=== PATIENT | female | born 1955 | race Caucasian/White ===

== ENCOUNTER 2025-07-27 23:22 | Inpatient (IN) | payer OTHER ==
[2025-07-28] MEDS ORDERED: ONDANSETRON 4 MG/2 ML VIAL ONE ×2 (00:10→00:13)
[2025-07-28] MEDS ORDERED: MORPHINE 4 MG/ML SYR ONE (00:11)
[2025-07-28] MEDS ORDERED: NA CHLORIDE 0.9% 1,000 ML ONE (00:11)
[2025-07-28] MEDS ORDERED: FAMOTIDINE 20 MG/2 ML VIAL IV ONE (00:13)
[2025-07-28] MEDS ORDERED: HYDROMORPHONE HCL 1 MG/ML INJ ONE (00:36)
[2025-07-28 00:41] LABS: Absolute Lymphocytes (CBC) 1.3 K/uL (0.7-4.9); Hematocrit 40.7 % (36.0-45.0); Hemoglobin 13.9 g/dL (12.0-15.0); MCH 28.4 pg (27.0-35.0); MCHC 34.1 g/dL (32.0-36.0); MCV 83.4 fL (80-100); MPV 10.2 fL (7.6-11.3); Nucleated RBC Absolute Count 0.0 (0-0); Nucleated Red Blood Cells % 0.0 % (0-0); RBC Red Blood Cell Count 4.89 M/uL (3.86-4.86); White Blood Count 17.60 thou/uL (4.3-10.9)
[2025-07-28 00:43] LABS: Urine Microscopic Reflex YN NO UMIC
[2025-07-28] MEDS ORDERED: NA CHLORIDE 0.9% 100 ML ONE (01:12)
[2025-07-28] MEDS ORDERED: PIPERACIL/TAZO 3.375 GM VIAL IV ONE (01:13)
[2025-07-28 01:14] LABS: ALT/SGPT 28.0 U/L (13-56); AST/SGOT 19.0 U/L (15-37); Albumin 4.6 g/dL (3.4-5.0); Albumin/Globulin Ratio 1.3 (1.1-1.8); Alkaline Phosphatase 94.0 U/L (45-117); Anion Gap 11.4 mEq/L (5.0-15.0); BUN Blood Urea Nitrogen 13.0 mg/dL (7-18); Bilirubin Indirect, Calculated 0.5 mg/dL (0.2-0.8); Globulin 3.6 g/dL (2.3-3.5); Glucose Level 181.0 mg/dL (74-106); Lipase 33.0 U/L (13-75); Magnesium 1.7 mg/dL (1.6-2.4); NT PRO-BNP 113.0 pg/mL (<125); Potassium 3.4 mEq/L (3.5-5.1); Troponin High Sensitivity 9.5 pg/mL (<58.9)
[2025-07-28 01:34] LABS: PT Prothrombin Time 12.5 SECONDS (10-13.0); Protime INR 1.11
[2025-07-28 01:43] LABS: Blood Morphology Comment NOT SEEN (NOT SEEN); Differential Total Cells Count 100; Segmented Neutrophils 81 % (40-80)
--- NOTE | 2025-07-28 03:16 | RAD REPORT ---
EXAM: CT Abdomen and Pelvis With Intravenous Contrast CLINICAL HISTORY: The patient is 69 years old and is Female; ABD PAIN TECHNIQUE: Axial computed tomography images of the abdomen and pelvis with intravenous contrast. Sagittal and coronal reformatted images were created and reviewed. This CT exam was performed using one or more of the following dose reduction techniques: automated exposure control, adjustmen t of the mA and/or kV according to patient size, and/or use of iterative reconstruction technique. COMPARISON: No relevant prior studies available. FINDINGS: Lung bases: Unremarkable. No mass. No consolidation. ABDOMEN: Liver: Mild intra and extrahepatic biliary dilatation. Gallbladder and bile ducts: Gallbladder is surgically absent. Pancreas: Unremarkable. No mass. No ductal dilation. Spleen: Unremarkable. No splenomegaly. Adrenals: Mild nonspecific stranding around the adrenal glands bilaterally. Kidneys and ureters: Mild bilateral hydroureter. Stomach and bowel: Scattered colonic diverticula. No obstruction. No mucosal thickening. PELVIS: Appendix: No findings to suggest acute appendicitis. Bladder: Unremarkable. Reproductive: Uterus is not seen. ABDOMEN and PELVIS: Intraperitoneal space: Unremarkable. No free air. No significant fluid collection. Bones/joints: No acute fracture. No dislocation. Soft tissues: Unremarkable. Vasculature: Scattered atherosclerotic vascular calcifications. No abdominal aortic aneurysm. Lymph nodes: Unremarkable. No enlarged lymph nodes. IMPRESSION: 1. Gallbladder is surgically absent. 2. Mild intra and extrahepatic biliary dilatation. 3. Mild nonspecific stranding around the adrenal glands bilaterally. 4. Mild bilateral hydroureter. 5. Uterus is not seen. Electronically signed by: Peter Fowler MD 07/28/2025 03:10 AM CDT 8 Due to temporary technical issues with the PACS/[employer]Portico reporting system, reports are being hang d by the in-house radiologist without review as a courtesy to ensure prompt reporting the interpreting radiologist is fully responsible for the content of the report. Transcribed Date/Time: 07/28/2025 3:15 AM
--- NOTE | 2025-07-28 03:57 | EDPHYS ---
Physician Documentation [facility] Name: Kellen Oglesby Age: 69 yrs Sex: Female : 1955 Arrival Date: 07/27/2025 Time: 23:22 Bed 6 Private MD: ED Physician Tad Soto HPI: 07/28 00:24 This 69 yrs old Female presents to ER via EMS with complaints of Abd Pain > jessika 48 y/o. 00:24 The patient presents with abdominal pain in the upper abdomen, in the lower abdomen, jessika abdominal distention in the upper abdomen, in the lower abdomen. Onset: The symptoms/episode began/occurred 1 day(s) ago. The symptoms do not radiate. Associated signs and symptoms: none. Modifying factors: The symptoms are alleviated by nothing, the symptoms are aggravated by movement, pressure. Severity of pain: At its worst the pain was moderate in the emergency department the pain is unchanged. The patient has not experienced similar symptoms in the past. Historical: - Allergies: 00:07 No Known Allergies; bm8 - Home Meds: 00:07 Unable to obtain [Active]; bm8 - PMHx: 00:07 Hypertensive disorder; Hypercholesterolemia; bm8 - PSHx: 00:07 Unable to Obtain; bm8 - Immunization history:: Adult Immunizations up to date. - Infectious Disease History:: Denies. - Social history:: Smoking status: Patient denies any tobacco usage or history of. Patient/guardian denies using alcohol, street drugs. - Family history:: not pertinent. ROS: 00:24 Constitutional: Negative for fever, chills, and weight loss, Eyes: Negative for injury, jessika pain, redness, and discharge, ENT: Negative for injury, pain, and discharge, Neck: Negative for injury, pain, and swelling, Cardiovascular: Negative for chest pain, palpitations, and edema, Respiratory: Negative for shortness of breath, cough, wheezing, and pleuritic chest pain, Back: Negative for injury and pain, : Negative for injury, bleeding, discharge, and swelling, MS/Extremity: Negative for injury and deformity, Skin: Negative for injury, rash, and discoloration, Neuro: Negative for headache, weakness, numbness, tingling, and seizure, Psych: Negative for depression, anxiety, suicide ideation, homicidal ideation, and hallucinations, Allergy/Immunology: Negative for hives, rash, and allergies, Endocrine: Negative for neck swelling, polydipsia, polyuria, polyphagia, and marked weight changes, Hematologic/Lymphatic: Negative for swollen nodes, abnormal bleeding, and unusual bruising, 00:24 Abdomen/GI: Positive for abdominal pain, nausea and vomiting, abdominal cramps, abdominal distension, 00:24 MS/extremity: Negative for acute changes, Exam: 00:24 Constitutional: This is a well developed, well nourished patient who is awake, alert, jessika and in no acute distress. Head/Face: Normocephalic, atraumatic. Eyes: Pupils equal round and reactive to light, extra-ocular motions intact. Lids and lashes normal. Conjunctiva and sclera are non-icteric and not injected. Cornea within normal limits. Periorbital areas with no swelling, redness, or edema. ENT: Nares patent. No nasal discharge, no septal abnormalities noted. Tympanic membranes are normal and external auditory canals are clear. Oropharynx with no redness, swelling, or masses, exudates, or evidence of obstruction, uvula midline. Mucous membranes moist. Neck: Trachea midline, no thyromegaly or masses palpated, and no cervical lymphadenopathy. Supple, full range of motion without nuchal rigidity, or vertebral point tenderness. No Meningismus. Chest/axilla: Normal chest wall appearance and motion. Nontender with no deformity. No lesions are appreciated. Cardiovascular: Regular rate and rhythm with a normal S1 and S2. No gallops, murmurs, or rubs. Normal PMI, no JVD. No pulse deficits. Respiratory: Lungs have equal breath sounds bilaterally, clear to auscultation and percussion. No rales, rhonchi or wheezes noted. No increased work of breathing, no retractions or nasal flaring. Back: No spinal tenderness. No costovertebral tenderness. Full range of motion. Female : Normal external genitalia. Skin: Warm, dry with normal turgor. Normal color with no rashes, no lesions, and no evidence of cellulitis. MS/ Extremity: Pulses equal, no cyanosis. Neurovascular intact. Full, normal range of motion., bilateral aka Neuro: Awake and alert, GCS 15, oriented to person, place, time, and situation. Cranial nerves II-XII grossly intact. Motor strength 5/5 in all extremities. Sensory grossly intact. Cerebellar exam normal. Normal gait. Psych: Awake, alert, with orientation to person, place and time. Behavior, mood, and affect are within normal limits. 00:24 ECG was reviewed by the Attending Physician. 00:24 Abdomen/GI: Inspection: distension, that is mild, Bowel sounds: active, all quadrants, Palpation: moderate abdominal tenderness, in all quadrants, Liver: no appreciated palpable abnormalities, Hernia: not appreciated, 01:11 ECG was reviewed by the Attending Physician. [facility] Vital Signs: 00:05 BP 177 / 93; Pulse 93; Resp 17; Temp 97.6; Pulse Ox 100% ; Weight 77.11 kg; Height 5 bm8 ft. 3 in. ; Pain 8/10; 01:06 BP 164 / 82; Pulse 81; Resp 19; Pulse Ox 91% on R/A; kd3 01:12 BP 164 / 82; Pulse 82; Resp 20; Temp 97.6; Pulse Ox 97% on 2 lpm NC; Pain 0/10; kd3 02:31 BP 141 / 78; Pulse 72; Resp 16; Pulse Ox 96% on 2 lpm NC; kd3 02:59 BP 160 / 84; Pulse 71; Resp 19; Pulse Ox 97% on 2 lpm NC; kd3 03:50 BP 161 / 85; Pulse 79; Resp 17; Pulse Ox 96% on 2 lpm NC; kd3 04:39 BP 137 / 80; Pulse 99; Resp 19; Pulse Ox 100% on 2 lpm NC; kd3 05:32 BP 124 / 92; Pulse 82; Resp 19; Pulse Ox 96% on 2 lpm NC; kd3 00:05 Body Mass Index 30.11 (77.11 kg, 160.02 cm) bm8 00:05 Pain Scale: Adult bm8 01:12 Pain Scale: Adult kd3 Cristal Coma Score: 01:20 Eye Response: spontaneous(4). Motor Response: obeys commands(6). Verbal Response: bm8 oriented(5). Total: 15. MDM: 00:08 Medical Screening Exam initiated jessika 00:28 Differential diagnosis: AAA, appendicitis, bowel obstruction, diverticulitis, jessika gastritis, gastroesophageal reflux disease, GI Bleed, Mesenteric ischemia or infarction, non-specific abd pain, pancreatitis, Peptic Ulcer Disease, Perf. Duodenal Ulcer, Peritonitis, Pyelonephritis, Ureterolithiasis, urinary tract infection. Data reviewed: vital signs, nurses notes, EMS record, lab test result(s), EKG, radiologic studies, CT scan, plain films. Consideration of Admission/Observation Patient was admitted/placed on observation. Escalation of care including admission/observation considered. I considered the following discharge prescriptions or medication management in the emergency department Medications were administered in the Emergency Department. See MAR. Independent interpretation of the following test(s) in the Emergency Department EKG: See my EKG interpretation above. 07/28 00:10 Order name: CBC with Diff; Complete Time: 03:54 jessika 07/28 00:10 Order name: LFT's; Complete Time: : jessika 07/28 00:10 Order name: Magnesium; Complete Time: : jessika 07/28 00:10 Order name: NT PRO-BNP; Complete Time: : jessika 07/28 00:10 Order name: PT-INR; Complete Time: 03:54 jessika 07/28 00:10 Order name: Troponin HS; Complete Time: : jessika 07/28 00:10 Order name: Lipase; Complete Time: : jessika 07/28 00:10 Order name: UA Rfx Jeffrey Cult if indicated; Complete Time: 01:08 jessika 07/28 00:11 Order name: CMP; Complete Time: 01:33 kd3 07/28 00:23 Order name: Lactate w/ 2H reflex if indic.; Complete Time: 01: jessika 07/28 00:45 Order name: Manual Differential; Complete Time: 03:54 EDMS 07/28 01:33 Order name: Ghost Lactate-NO COLLECT Timer; Complete Time: 03:54 EDMS 07/28 05:01 Order name: Lactate w/ 2H reflex if indic. EDMS 07/28 05:01 Order name: Lactate w/ 2H reflex if indic. EDMS 07/28 05:01 Order name: Lactate w/ 2H reflex if indic. EDMS 07/28 05:05 Order name: CBC with Automated Diff EDMS 07/28 05:05 Order name: CBC with Automated Diff EDMS 07/28 05:05 Order name: CBC with Automated Diff EDMS 07/28 05:05 Order name: CBC with Automated Diff EDMS 07/28 05:05 Order name: Comprehensive Metabolic Panel EDMS 07/28 05:05 Order name: Comprehensive Metabolic Panel [facility] 07/28 05:05 Order name: Comprehensive Metabolic Panel [facility] 07/28 05:05 Order name: Comprehensive Metabolic Panel [facility] 07/28 05:05 Order name: Magnesium [facility] 07/28 05:05 Order name: Magnesium [facility] 07/28 05:05 Order name: Magnesium [facility] 07/28 05:05 Order name: Magnesium [facility] 07/28 05:05 Order name: Phosphorus [facility] 07/28 05:05 Order name: Phosphorus [facility] 07/28 05:05 Order name: Phosphorus [facility] 07/28 05:05 Order name: Phosphorus [facility] 07/28 05:09 Order name: Lactate Sepsis 2 HR Follow-up [facility] 07/28 00:10 Order name: XRAY Chest (1 view) [facility] 07/28 00:10 Order name: CT Abd/Pelvis - IV Contrast Only [facility] 07/28 05:05 Order name: CONS Physician Consult [facility] 07/28 05:10 Order name: Dr Octavio Consult [facility] 07/28 00:10 Order name: Cardiac monitoring; Complete Time: 00:15 [facility] 07/28 00:10 Order name: EKG - Nurse/Tech; Complete Time: 01:05 [facility] 07/28 00:10 Order name: IV Saline Lock; Complete Time: 00:15 [facility] 07/28 00:10 Order name: Labs collected and sent; Complete Time: 00:15 [facility] 07/28 00:10 Order name: O2 Per Protocol; Complete Time: 00:14 [facility] 07/28 00:10 Order name: O2 Sat Monitoring; Complete Time: 00:14 [facility] 07/28 00:11 Order name: IV Saline Lock; Complete Time: 00:12 kd3 07/28 00:11 Order name: Labs collected and sent; Complete Time: 00:12 kd3 EC:11 Rate is 78 beats/min. Rhythm is regular. QRS [place] is Normal. [place] interval is normal. QRS jessika interval is normal. QT interval is normal. No Q waves. T waves are Normal. No ST changes noted. Clinical impression: NSR w/ Non-specific ST/T Changes and No evidence of ischemia. Interpreted by me. Reviewed by me. Administered Medications: 00:11 CANCELLED (Duplicate Order): morphineor iv 4 mg IVP once over 4 mins kd3 00:12 CANCELLED (Duplicate Order): ondansetron 4 mg IVP once; over 2 minutes kd3 00:15 Drug: NS 0.9% IV 1000 ml IV at 1000 ml once; to be given as a bolus over 60 minutes kd3 Route: IV; Rate: 1000 ml; Site: right antecubital; 06:12 Follow up: Response: No adverse reaction; IV Status: Completed infusion bm8 00:15 Drug: Famotidine IVP 20 mg IVP once; dilute with 10 mL 0.9% NaCl; give over 2 minutes kd3 Route: IVP; Site: right antecubital; 04:42 Follow up: Response: No adverse reaction; Nausea is decreased kd3 00:16 Drug: morphine IVP or IV 2 mg IVP once over 4 mins Route: IVP; Infused Over: 4 mins; kd3 Site: right antecubital; 04:42 Follow up: Response: No adverse reaction; Pain is decreased kd3 00:16 Drug: morphine IVP or IV 2 mg IVP once over 4 mins Route: IVP; Infused Over: 4 mins; kd3 Site: right antecubital; 04:42 Follow up: Response: No adverse reaction; Pain is decreased kd3 00:16 Drug: Ondansetron IVP 8 mg IVP once; over 2 minutes Route: IVP; Site: right antecubital;kd3 04:42 Follow up: Response: No adverse reaction; Nausea is decreased kd3 00:43 Drug: HYDROmorphone IVP 1 mg IVP once Route: IVP; Site: right antecubital; bm8 01:20 Follow up: Response: No adverse reaction bm8 04:41 Follow up: Response: No adverse reaction; Pain is decreased kd3 01:26 Drug: Piperacillin-Tazobactam IVPB 3.375 grams IVPB once over 60 mins; (mix in NS 100 kd3 mL) Route: IVPB; Infused Over: 60 mins; Site: right antecubital; 04:41 Follow up: Response: No adverse reaction kd3 06:11 Follow up: Response: No adverse reaction; IV Status: Completed infusion bm8 05:00 Drug: NS 0.9% with KCl IV 20 mEq/L 1000 ml IV at 125 ml/hr continuous Route: IV; Rate: kd3 125 ml/hr; Site: right antecubital; 06:11 Follow up: Response: No adverse reaction; IV Status: Infusion continued upon admission bm8 05:00 Drug: HYDROmorphone IVP 0.5 mg IVP once Route: IVP; Site: right antecubital; kd3 06:11 Follow up: Response: No adverse reaction bm8 Disposition Summary: 07/28/25 03:56 Hospitalization Ordered Notes: Hospitalization Status: Inpatient Admission jessika Provider: Jacobo Terry cha Location: Telemetry/MedSurg (Inpatient) jessika Condition: Fair jessika Problem: new jessika Symptoms: have improved jessika Bed/Room Type: Standard jessika Room Assignment: [id number](07/28/25 05:36) [facility] Diagnosis - Abdominal pain, Generalized jessika - Vomiting jessika - Elevated white blood cell count jessika - Hypokalemia jessika - Bandemia jessika - Severe sepsis without septic shock jessika Forms: - Medication Reconciliation Form jessika - SBAR form jessika - Leadership Thank You Letter jessika Signatures: Dispatcher [employer] EDMS Tad Soto MD MD cha Doucette, Kyli RN RN kd3 Yvette Rizo [facility] Torey Umanzor RN RN bm8 Corrections: (The following items were deleted from the chart) 00:07 00:07 PMHx: None; bm8 bm8 00:10 00:10 BASIC METABOLIC PANEL+C.LAB.BRZ ordered. EDMS EDMS 00:10 00:10 CBC+H.LAB.BRZ ordered. EDMS EDMS 00:10 00:10 HEPATIC FUNCTION+C.LAB.BRZ ordered. EDMS EDMS 00:10 00:10 MAGNESIUM+C.LAB.BRZ ordered. EDMS EDMS 00:10 00:10 PROBNP+C.LAB.BRZ ordered. EDMS EDMS 00:10 00:10 PROTIME (+INR)+COAG.LAB.BRZ ordered. EDMS EDMS 00:10 00:10 Troponin High Sensitivity+C.LAB.BRZ ordered. EDMS EDMS 00:10 00:10 LIPASE+C.LAB.BRZ ordered. EDMS EDMS 00:10 00:10 UA Rfx Jeffrey Cult if indicated+U.LAB.BRZ ordered. EDMS EDMS 00:10 00:10 Abdomen Pelvis W Con+CT.RAD.BRZ ordered. EDID EDMS 00:11 00:11 morphine IVP or IV 4 mg IVP once over 4 mins ordered. kd3 kd3 00:12 00:11 Ondansetron IVP 4 mg IVP once; over 2 minutes ordered. kd3 kd3 : 00:11 CBC+H.LAB.BRZ ordered. EDMS EDMS 00:11 LIPASE+C.LAB.BRZ ordered. EDMS EDMS : 00:11 Troponin High Sensitivity+C.LAB.BRZ ordered. EDMS EDMS 00:11 UA Rfx Jeffrey Cult if indicated+U.LAB.BRZ ordered. EDMS EDMS 05:36 03:56 jessika kmf
--- NOTE | 2025-07-28 03:57 | ER ---
Nurse's Notes [facility] Name: Kellen Oglesby Age: 69 yrs Sex: Female : 1955 Arrival Date: 07/27/2025 Time: 23:22 Bed 6 Private MD: Diagnosis: Abdominal pain, Generalized;Vomiting;Elevated white blood cell count;Hypokalemia;Bandemia;Severe sepsis without septic shock Presentation: 07/28 00:05 Chief complaint: Patient states: my stomach started hurting about 2 hrs with nausea and bm8 vomting. Coronavirus screen: At this time, the client does not indicate any symptoms associated with coronavirus-19. Ebola Screen: Patient negative for fever greater than or equal to 101.5 degrees Fahrenheit, and additional compatible Ebola Virus Disease symptoms Patient denies exposure to infectious person. Patient denies travel to an Ebola-affected area in the 21 days before illness onset. No symptoms or risks identified at this time. Initial Sepsis Screen: Does the patient meet any 2 criteria? No. Patient's initial sepsis screen is negative. Does the patient have a suspected source of infection? No. Patient's initial sepsis screen is negative. Risk Assessment: Do you want to hurt yourself or someone else? Patient reports no desire to harm self or others. Onset of symptoms was July 27, 2025 at 22:00. 00:05 Method Of Arrival: [facility]: [facility] bm8 00:05 Acuity: AYDEN 3 bm8 00:33 Care prior to arrival: Medication(s) given: reglan 10 mg iv IV initiated. 20 GA, in the bm8 right antecubital area. Triage Assessment: 00:07 General: Appears in no apparent distress. uncomfortable, Behavior is cooperative, bm8 appropriate for age, anxious. Pain: Complains of pain in right lower quadrant and left lower quadrant Pain currently is 8 out of 10 on a pain scale. EENT: No deficits noted. No signs and/or symptoms were reported regarding the EENT system. Neuro: No deficits noted. Level of Consciousness is awake, alert, obeys commands, Oriented to person, place, time, situation, Appropriate for age. Cardiovascular: Denies chest pain, Capillary refill < 3 seconds in bilateral fingers Patient's skin is warm and dry. Respiratory: Airway is patent Respiratory effort is even, unlabored, Respiratory pattern is regular, symmetrical. GI: Abdomen is flat, non-distended, Bowel sounds present X 4 quads. Reports lower abdominal pain, nausea, Pain is 8 out of 10 on a pain scale. vomiting. : No deficits noted. No signs and/or symptoms were reported regarding the genitourinary system. Derm: No deficits noted. No signs and/or symptoms reported regarding the dermatologic system. Musculoskeletal: No deficits noted. No signs and/or symptoms reported regarding the musculoskeletal system. Historical: - Allergies: 00:07 No Known Allergies; bm8 - Home Meds: 00:07 Unable to obtain [Active]; bm8 - PMHx: 00:07 Hypertensive disorder; Hypercholesterolemia; bm8 - PSHx: 00:07 Unable to Obtain; bm8 - Immunization history:: Adult Immunizations up to date. - Infectious Disease History:: Denies. - Social history:: Smoking status: Patient denies any tobacco usage or history of. Patient/guardian denies using alcohol, street drugs. - Family history:: not pertinent. Screenin:20 [facility] ED Fall Risk Assessment (Adult) History of falling in the last 3 months, bm8 including since admission No falls in past 3 months (0 pts) Confusion or Disorientation No (0 pts) Intoxicated or Sedated No (0 pts) Impaired Gait No (0 pts) Mobility Assist Device Used No (0 pt) Altered Elimination No (0 pt) Score/Fall Risk Level 0 - 2 = Low Risk Oriented to surroundings, Maintained a safe environment, Educated pt \T\ family on fall prevention, incl call for assistance when getting out of bed, Assessed \T\ reinforced patient's understanding of fall precautions, Hourly rounding (assess needs \T\ fall precautionary measures) done, Used ambulatory aids as needed (educated on \T\ assisted with), Used gait belt as appropriate. Abuse screen: Denies threats or abuse. Nutritional screening: No deficits noted. Tuberculosis screening: No symptoms or risk factors identified. Assessment: 01:07 General: Appears in no apparent distress. Behavior is calm, cooperative. Neuro: Level kd3 of Consciousness is awake, alert, obeys commands, Oriented to person, place, time, situation. Cardiovascular: Capillary refill < 3 seconds Patient's skin is warm and dry. GI: Abd is soft X 4 quads. 02:15 General: Appears uncomfortable, Behavior is calm, cooperative. Neuro: Level of kd3 Consciousness is awake, alert, obeys commands, Oriented to person, place, time, situation. Cardiovascular: Capillary refill < 3 seconds Patient's skin is warm and dry. 03:30 General: Appears in no apparent distress. Behavior is calm, cooperative. Pain: kd3 Complains of pain in abdomen and left lower quadrant and right lower quadrant. Neuro: Level of Consciousness is awake, alert, obeys commands, Oriented to person, place, time, situation. 04:00 Reassessment: Patient and/or family updated on plan of care and expected duration. Pain kd3 level reassessed. Patient is alert, oriented x 3, equal unlabored respirations, skin warm/dry/pink. Patient states feeling better. Patient states symptoms have improved. 04:41 General: Provider is at the bedside. PT reports the pain is returning and that the pain kd3 occurs when she moves. . 06:10 Reassessment: Patient appears in no apparent distress at this time. No changes from bm8 previously documented assessment. Patient and/or family updated on plan of care and expected duration. Pain level reassessed. Patient is alert, oriented x 3, equal unlabored respirations, skin warm/dry/pink. Vital Signs: 00:05 BP 177 / 93; Pulse 93; Resp 17; Temp 97.6; Pulse Ox 100% ; Weight 77.11 kg; Height 5 bm8 ft. 3 in. ; Pain 8/10; 01:06 BP 164 / 82; Pulse 81; Resp 19; Pulse Ox 91% on R/A; kd3 01:12 BP 164 / 82; Pulse 82; Resp 20; Temp 97.6; Pulse Ox 97% on 2 lpm NC; Pain 0/10; kd3 02:31 BP 141 / 78; Pulse 72; Resp 16; Pulse Ox 96% on 2 lpm NC; kd3 02:59 BP 160 / 84; Pulse 71; Resp 19; Pulse Ox 97% on 2 lpm NC; kd3 03:50 BP 161 / 85; Pulse 79; Resp 17; Pulse Ox 96% on 2 lpm NC; kd3 04:39 BP 137 / 80; Pulse 99; Resp 19; Pulse Ox 100% on 2 lpm NC; kd3 05:32 BP 124 / 92; Pulse 82; Resp 19; Pulse Ox 96% on 2 lpm NC; kd3 00:05 Body Mass Index 30.11 (77.11 kg, 160.02 cm) bm8 00:05 Pain Scale: Adult bm8 01:12 Pain Scale: Adult kd3 Cristal Coma Score: 01:20 Eye Response: spontaneous(4). Motor Response: obeys commands(6). Verbal Response: bm8 oriented(5). Total: 15. ED Course: 00:05 Patient arrived in ED. bm8 00:07 Triage completed. bm8 00:07 Arm band placed on right wrist. bm8 00:08 Tad Soto MD is Attending Physician. [facility] 00:08 Carri Robledo RN is Primary Nurse. kd3 00:15 Maintain EMS IV. Dressing intact. Good blood return noted. Site clean \T\ dry. Gauge \T\ kd 3 site: 20 G right A/C . Flushed with 10 mL NS. 01:01 XRAY Chest (1 view) In Process Unspecified. EDMS 01:20 Patient has correct armband on for positive identification. Bed in low position. Call bm8 light in reach. Side rails up X 1. Adult w/ patient. Client placed on continuous cardiac and pulse oximetry monitoring. NIBP monitoring applied. Pulse ox on. NIBP on. Door closed. Noise minimized. Warm blanket given. Pillow given. Verbal reassurance given. Head of bed elevated. 01:20 No provider procedures requiring assistance completed. Oxygen administration via nasal bm8 cannula \T\ 2L/min Response to oxygen therapy: symptoms improved. 01:44 CT Abd/Pelvis - IV Contrast Only In Process Unspecified. EDMS 03:55 Jacobo Terry MD is Hospitalizing Provider. [facility] 06:10 Provided Education on: need for admission. bm8 06:10 Patient admitted, IV remains in place. bm8 Administered Medications: 00:11 CANCELLED (Duplicate Order): morphineor iv 4 mg IVP once over 4 mins kd3 00:12 CANCELLED (Duplicate Order): ondansetron 4 mg IVP once; over 2 minutes kd3 00:15 Drug: NS 0.9% IV 1000 ml IV at 1000 ml once; to be given as a bolus over 60 minutes kd3 Route: IV; Rate: 1000 ml; Site: right antecubital; 06:12 Follow up: Response: No adverse reaction; IV Status: Completed infusion bm8 00:15 Drug: Famotidine IVP 20 mg IVP once; dilute with 10 mL 0.9% NaCl; give over 2 minutes kd3 Route: IVP; Site: right antecubital; 04:42 Follow up: Response: No adverse reaction; Nausea is decreased kd3 00:16 Drug: morphine IVP or IV 2 mg IVP once over 4 mins Route: IVP; Infused Over: 4 mins; kd3 Site: right antecubital; 04:42 Follow up: Response: No adverse reaction; Pain is decreased kd3 00:16 Drug: morphine IVP or IV 2 mg IVP once over 4 mins Route: IVP; Infused Over: 4 mins; kd3 Site: right antecubital; 04:42 Follow up: Response: No adverse reaction; Pain is decreased kd3 00:16 Drug: Ondansetron IVP 8 mg IVP once; over 2 minutes Route: IVP; Site: right antecubital;kd3 04:42 Follow up: Response: No adverse reaction; Nausea is decreased kd3 00:43 Drug: HYDROmorphone IVP 1 mg IVP once Route: IVP; Site: right antecubital; bm8 01:20 Follow up: Response: No adverse reaction bm8 04:41 Follow up: Response: No adverse reaction; Pain is decreased kd3 01:26 Drug: Piperacillin-Tazobactam IVPB 3.375 grams IVPB once over 60 mins; (mix in NS 100 kd3 mL) Route: IVPB; Infused Over: 60 mins; Site: right antecubital; 04:41 Follow up: Response: No adverse reaction kd3 06:11 Follow up: Response: No adverse reaction; IV Status: Completed infusion bm8 05:00 Drug: NS 0.9% with KCl IV 20 mEq/L 1000 ml IV at 125 ml/hr continuous Route: IV; Rate: kd3 125 ml/hr; Site: right antecubital; 06:11 Follow up: Response: No adverse reaction; IV Status: Infusion continued upon admission bm8 05:00 Drug: HYDROmorphone IVP 0.5 mg IVP once Route: IVP; Site: right antecubital; kd3 06:11 Follow up: Response: No adverse reaction bm8 Medication: 01:20 VIS not applicable for this client. bm8 Outcome: 03:56 Decision to Hospitalize by Provider. jessika 06:10 Admitted to Tele accompanied by nurse, via wheelchair, room 417, with chart, bm8 06:10 Condition: stable 06:10 Instructed on follow up and referral plans. the need for admit, Demonstrated understanding of follow-up care, medications, 06:12 Patient left the ED. 8 Signatures: Dispatcher [employer] EDTad Carmichael MD MD cha Doucette, Kyli, RN RN kd3 Torey Umanzor, RN RN 8 Corrections: (The following items were deleted from the chart) 00:07 00:07 PMHx: None; bm8 bm8 06:11 06:10 Admitted to [place] [id number]
[2025-07-28] MEDS ORDERED: SODIUM CHLORIDE 0.9% 10ML INJ IV PRN (04:55)
[2025-07-28] MEDS ORDERED: NS KCL 20MEQ 1,000 ML IV ONE (04:59)
[2025-07-28] MEDS ORDERED: HYDROMORPHONE HCL 0.5 MG/0.5 ML INJ ONE (04:59)
[2025-07-28] MEDS ORDERED: ONDANSETRON 4 MG/2 ML VIAL IV PRN (04:59)
--- NOTE | 2025-07-28 05:15 | P.HP ---
Certification for Inpatient Patient admitted to: Inpatient With expected LOS: >2 Midnights Patient will require the following post-hospital care: None Practitioner: I am a practitioner with admitting privileges, knowledge of patient current condition, hospital course, and medical plan of care. Services: Services provided to patient in accordance with Admission requirements found in Title 42 Section 412.3 of the Code of Federal Regulations <Chau Berrios - Last Filed: 07/28/25 05:22> Patient History Date of Service: 07/28/25 Reason for admission: Abdominal pain, sepsis of unknown etiology. History of Present Illness: Patient is a 69-year-old female with past medical history of essential hypertension, hypercholesteremia, breast cancer, who reports to the ER today complaining of worsening abdominal pain with associated nausea and vomiting nonbilious and nonbloody content with no associated diarrhea. Patient states around 4 PM today, she started having severe diffuse abdominal pain, with associated nausea and vomiting nonbilious and nonbloody content, with no associated chest pain or shortness of breath. Patient states prior to her onset of abdominal pain, she ate some food with cheese, states approximately 2-hour after she ate the food, she started having severe abdominal pain. On admission assessment, patient fully awake, alert and oriented x 3, endorses abdominal pain, with no nausea or vomiting noted at this time. Patient source of sepsis is unknown at this time. Patient UA is negative, chest x-ray with no acute intrathoracic disease noted at this time. Course in ER. (1) CT abdomen and pelvis with intravenous contrast. Impression: (a) gallbladder is surgically absent. (b) mild intra and extrahepatic biliary dilation. (c) mild nonspecific stranding around adrenal glands bilaterally. (d) mild bilateral hydroureter. (e) uterus is not seen. - Social History Alcohol use: No CD- Drugs: No Caffeine use: Yes Place of Residence: Home <Chau Berrios - Last Filed: 07/28/25 05:22> Date of Service: 07/28/25 <Jacobo Terry - Last Filed: 08/03/25 00:51> Allergies No Known Allergies Allergy (Unverified 07/03/12 14:18) Home Medications: Anastrozole [Arimidex] 07/03/12 Atorvastatin Calcium 1 tab PO DAILY 07/03/12 Ibuprofen 1 mg PO Q8HP PRN 07/03/12 Lisinopril/Hydrochlorothiazide [Lisinopril-Hctz 20-12.5 mg Tab] 1 tab PO DAILY 07/03/12 Potassium Chloride [Klor-Con M20] 1 tab PO 07/03/12 Sertraline HCl 1.5 tab PO DAILY 07/03/12 Smz./Tmp. [Bactrim Ds 800 MG/160 MG] 1 tab PO TID 07/03/12 Zolpidem Tartrate PRN 07/03/12 Review of Systems 10-point ROS is otherwise unremarkable Gastrointestinal: Nausea, Vomiting, Abdominal Pain <Chau Berrios Last Filed: 07/28/25 05:22> Physical Examination - Physical Exam General: Alert, In no apparent distress, Oriented x3 HEENT: Atraumatic, Normocephalic, PERRLA, Mucous membr. moist/pink, Sclerae nonicteric Neck: Supple, 2+ carotid pulse no bruit, JVD not distended, No LAD, Without JVD or thyroid abnormality Respiratory: Clear to auscultation bilaterally, Normal air movement Cardiovascular: No edema, Normal pulses, Regular rate/rhythm, Normal S1 S2, Abnormal S3, No gallops, No rubs, No murmurs Capillary refill: <2 Seconds Gastrointestinal: Normal bowel sounds, Soft and benign, Non-distended, W/out hepatomegaly, No ascites, No masses, No rebound, Tenderness (Diffuse tenderness.), Guarding - Studies Laboratory Data (last 24 hrs) 07/28/25 07/28/25 07/28/25 00:18 00:18 00:18 WBC 17.60 H Hgb 13.9 Hct 40.7 Plt Count 195 PT 12.5 INR 1.11 Sodium 138 Potassium 3.4 L BUN 13 Creatinine 1.05 H Glucose 181 H Magnesium 1.7 Total Bilirubin 0.7 AST 19 ALT 28 Alkaline Phosphatase 94 Lipase 33 07/28/25 07/28/25 00:11 00:11 WBC Cancelled Hgb Cancelled Hct Cancelled Plt Count Cancelled PT INR Sodium Potassium BUN Creatinine Glucose Magnesium Total Bilirubin AST ALT Alkaline Phosphatase Lipase Cancelled <Chau Berrios Last Filed: 07/28/25 05:22> Female Exam - Breasts Breasts: Normal configuration, Normal contours, Symmetrical <Chau Berrios Last Filed: 07/28/25 05:22> Assessment and Plan - Plan Patient is a 69-year-old female who reports to ER complaining of severe diffuse abdominal pain associated with nausea and vomiting nonbilious and nonbloody content, with no associated chest pain or shortness of breath. Patient workup in the ER at this time does not give a clear indication of the patient source of sepsis. (1)Sepsis of unknown etiology with associated abdominal pain, nausea and vomiting. - Zosyn 3.375 IV every 8 hours. -IV NS at 75 mL/ hr. -Morphine 4 mg IV as needed every 4 hours. -Protonix 40 mg IV x 1 followed with Protonix 40 mg IV daily. -Consult surgery Dr. Jones. -Consult GI Dr. Cunningham. -Follow-up lactic acid every 2 hours. -Will hold on any pressors at this time patient blood pressure is stable. (2)Hypokalemia 3.4. -Order potassium 40 mEq p.o. x 1. (3) DVT prophylaxis. -Lovenox 40 mg subcu daily. (4)Explained the entire treatment plan to the patient, solicited questions answered and voiced understanding. Discharge Plan: Home Plan to discharge in: Greater than 2 days - Advance Directives Does patient have a Living Will: Yes Does patient have a Durable POA for Healthcare: Yes - Code Status/Comfort Care Code Status Assessed: Yes Code Status: Full Code Critical Care: No Time Spent Managing Pts Care (In Minutes): 55 <Chau Berrios - Last Filed: 07/28/25 05:22> Date of Service: 07/28/25 Patient was seen and examined. Events of the last 24 hours have been noted. Spoke with with ELIZABETH regarding patient's clinical picture after evaluating and examining the patient independently. I performed a substantial part of the MDM during this patient's care today. I personally made or approved the documented management plan and acknowledge its risk of complications. I agree with the findings and documentation provided in the ELIZABETH's notes. <Jacobo Terry - Last Filed: 08/03/25 00:51>
--- NOTE | 2025-07-28 06:14 | RAD REPORT ---
TIME OF STUDY: 07/28/2025 12:10 AM CDT REASON FOR EXAM: ABDOMINAL DISTENTION COMPARISON: None. FINDINGS: AP view of the chest was obtained, chest 1 view. Lungs: The lungs are adequately inflated. Elevation of the right hemidiaphragm is noted. Curvilinea r opacities are noted in the right lung base, likely atelectasis. The left lung is clear. Surgical clips are noted in the left axilla. No free air is noted under the hemidiaphragms. Pleura: No pneumothorax. There is no pleural effusion. Heart and Mediastinum: Cardiac silhouette appears enlarged. The aorta is atherosclerotic. The patie nt is status post TAVR. Bones: No acute bony abnormality.. IMPRESSION: 1. Elevation of the right hemidiaphragm with patchy opacities in the right lung base. 2. Cardiomegaly with aortic valve replacement. Electronically signed by: Dakota Case MD 07/28/2025 01:47 AM CDT RP Due to temporary technical issues with the PACS/[employer] reporting system, reports are being hang d by the in-house radiologist without review as a courtesy to ensure prompt reporting the interpreting radiologist is fully responsible for the content of the report. Transcribed Date/Time: 07/28/2025 6:13 AM
[2025-07-28 07:58] VITALS: BMI 29.2
[2025-07-28] MEDS: PNEUMOCOCCAL VACCINE 0.5 ML IMVAC ONE (09:00)
[2025-07-28] MEDS: PIPER TAZO 3.375 GM in NA CHLORIDE 0.9% 100 ML IV SCH (09:09)
[2025-07-28] MEDS: PANTOPRAZOLE 40 MG INJ IVP SCH (09:09)
[2025-07-28] MEDS: ENOXAPARIN 40 MG/0.4 ML SQ SCH (09:09)
[2025-07-28] MEDS: NA CHLORIDE 0.9% 1,000 ML IV SCH (09:10)
[2025-07-28] MEDS: POTASSIUM CL SA 10 MEQ TAB PO ONE (09:20)
[2025-07-28] MEDS: PANTOPRAZOLE 40 MG INJ IVP ONE (09:20)
--- NOTE | 2025-07-28 11:20 | CON ---
Date of Consultation: 07/28/2025 Reason For Consultation: Abdominal pain. History Of Present Illness: The patient is a 69-year-old female who was in usual state of health yesterday and ate some cottage cheese and watermelon and following which she became very ill with significant nausea, vomiting, and diarrhea. The symptoms started couple of hours after eating at 4:00 p.m. yesterday. She had diffuse abdominal pain associated with it. She was evaluated in the emergency room and was found to have sepsis and she was admitted for treatment and further evaluation. She is awake, alert, feels much better. No further diarrhea today. She said that cottage cheese she ate did have a slight odor to it. She is unsure whether it was spoiled or not. There is no one else who ate the same food. No sore throat, runny nose, cough, headaches, or dizziness. No chest pain. No fever or chills at this time. Review of Systems: Otherwise unremarkable. Past Medical History: Significant for hypertension, hypercholesterolemia, breast cancer. Past Surgical History: Cholecystectomy, hysterectomy, pelvic surgery, lower extremity surgery secondary to injury. Allergies: NONE. Social History: The patient does use alcohol occasionally and smokes marijuana occasionally. Physical Examination: Vital Signs: Currently stable. She is afebrile. General: She is awake and alert. Head and Neck: No masses. Chest: Clear. Heart: S1, S2. Abdomen: Soft, nondistended, nontender. Positive bowel sounds. Extremities: Neurovascularly intact. Neuro: Nonfocal. Laboratory Data: Shows white count 17.6 with a left shift. INR is 1.11. Chemistry reviewed. Her lactic acid was 3.1, down to 0.8. Her electrolytes are essentially unremarkable. CT of the abdomen and pelvis reviewed, essentially unremarkable. No intraabdominal source of sepsis that is identified. Assessment: Likely gastroenteritis secondary to spoiled food. Recommendations: Continue hydration, IV antibiotics, and supportive care. Advance diet as tolerated. There is no need for any surgical intervention. I will discuss the case in detail with the hospitalist team. IVAN/MODL Voice ID: [id number] Report ID: [id number] SHERRY
[2025-07-28 21:00] VITALS: O2SAT 93
[2025-07-29] MEDS: MORPHINE 2 MG/ML SYR IV ONE ×2 (05:15→05:29)
[2025-07-29 05:28] LABS: Absolute Lymphocytes (CBC) 1.3 K/uL (0.7-4.9); Hematocrit 40.4 % (36.0-45.0); Hemoglobin 13.5 g/dL (12.0-15.0); MCH 28.2 pg (27.0-35.0); MCHC 33.4 g/dL (32.0-36.0); MCV 84.5 fL (80-100); MPV 10.4 fL (7.6-11.3); Nucleated RBC Absolute Count 0.0 (0-0); Nucleated Red Blood Cells % 0.0 % (0-0); RBC Red Blood Cell Count 4.78 M/uL (3.86-4.86); White Blood Count 9.20 thou/uL (4.3-10.9)
[2025-07-29 05:49] LABS: ALT/SGPT 55.0 U/L (13-56); AST/SGOT 34.0 U/L (15-37); Albumin 3.8 g/dL (3.4-5.0); Albumin/Globulin Ratio 1.1 (1.1-1.8); Alkaline Phosphatase 84.0 U/L (45-117); Anion Gap 8.3 mEq/L (5.0-15.0); BUN Blood Urea Nitrogen 9.0 mg/dL (7-18); Globulin 3.4 g/dL (2.3-3.5); Glucose Level 110.0 mg/dL (74-106); Magnesium 1.8 mg/dL (1.6-2.4); Potassium 3.3 mEq/L (3.5-5.1)
[2025-07-29] MEDS: KCL 20 MEQ/100 mL IVPB 20 MEQ/100 ML BAG IV SCH (09:56)
--- NOTE | 2025-07-29 12:25 | RAD REPORT ---
EXAMINATION: MR CHOLANGIOGRAM CLINICAL INDICATION: Female, 69 years old. abdominal pain TECHNIQUE: Multiplanar, multisequence MR imaging of the abdomen without intravenous contrast, and wit h specific attention to the biliary system. Unless otherwise specified, incidental findings do not require dedicated imaging follow-up. 3D MIP reconstruction performed. COMPARISON: 07/28/2025 FINDINGS: GALLBLADDER: Cholecystectomy. BILE DUCTS: Mild intra and extrahepatic biliary duct dilatation. The common bile duct measures up to 6 mm. No stricture or evidence of cholelithiasis. LIVER: Normal in size, contour, and signal without evidence of fatty infiltration or iron deposition. No focal lesion. PANCREAS: Mild atrophy. No focal mass identified. LYMPH NODES: No lymphadenopathy. ADDITIONAL FINDINGS: 7 mm right renal cyst. IMPRESSION: Cholecystectomy. Mild intra and extrahepatic biliary duct dilatation but without evidence of strictur e or choledocholithiasis.
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
[2025-07-30] MEDS: PANTOPRAZOLE 40MG TABLET PO ONE
[2025-07-30] MEDS: MORPHINE 2 MG/ML SYR IV ONE (05:12)
[2025-07-30 07:28] LABS: Absolute Lymphocytes (CBC) 1.1 K/uL (0.7-4.9); Hematocrit 35.3 % (36.0-45.0); Hemoglobin 12.0 g/dL (12.0-15.0); MCH 28.6 pg (27.0-35.0); MCHC 34.0 g/dL (32.0-36.0); MCV 84.2 fL (80-100); MPV 9.6 fL (7.6-11.3); Nucleated RBC Absolute Count 0.0 (0-0); Nucleated Red Blood Cells % 0.0 % (0-0); RBC Red Blood Cell Count 4.20 M/uL (3.86-4.86); White Blood Count 7.90 thou/uL (4.3-10.9)
[2025-07-30 07:50] LABS: ALT/SGPT 40.0 U/L (13-56); AST/SGOT 20.0 U/L (15-37); Albumin 3.5 g/dL (3.4-5.0); Albumin/Globulin Ratio 1.1 (1.1-1.8); Alkaline Phosphatase 76.0 U/L (45-117); Anion Gap 7.0 mEq/L (5.0-15.0); BUN Blood Urea Nitrogen 10.0 mg/dL (7-18); Globulin 3.1 g/dL (2.3-3.5); Glucose Level 104.0 mg/dL (74-106); Magnesium 1.9 mg/dL (1.6-2.4); Potassium 4.0 mEq/L (3.5-5.1)
[2025-07-30 08:26] VITALS: BP 129/68; TEMP 98.3
[2025-07-30] MEDS: SODIUM CHLORIDE 0.9% 10ML INJ IV PRN (09:19)
[2025-07-30] MEDS: POTASS/SODIUM PHOSPHATE 1 PKT POWD.PACK PO SCH (09:20)
== END 2025-07-30 11:15 | disposition home or self-care (01) | DRG 872 ==
LOC: ER 23:22 → 4TH 07-28 04:52
PROVIDERS: ADMIT Hospitalist; ATTEND Hospitalist
DX: A41.9 Sepsis, unspecified organism (principal); R65.20 Severe sepsis without septic shock; K52.9 Noninfective gastroenteritis and colitis, unspecified; I10 Essential (primary) hypertension; E78.00 Pure hypercholesterolemia, unspecified; E87.6 Hypokalemia; Z85.3 Personal history of malignant neoplasm of breast; Z79.899 Other long term (current) drug therapy; Z90.49 Acquired absence of other specified parts of digestive tract; Z90.710 Acquired absence of both cervix and uterus
CPT/HCPCS: 36415; 71045; 74177; 74181; 80053; 80076; 81003; 82977; 83605; 83690; 83735; 83880; 84100; 84132; 84484; 85025; 85610; 93005; 94760; 96361; 96365; 96366; 96375; 99285; A4216; J1171; J1650; J2270; J2405; J2470; J2543; J3480; J7030; Q9967